=== PATIENT | male | born 1980 | race Hispanic/Latino ===

== ENCOUNTER 2018-09-23 07:45 | Emergency (ER) | payer BC ==
[2018-09-23 08:02] VITALS: RESP 20; O2SAT 98
[2018-09-23] MEDS ORDERED: Dexamethasone 4 mg/1 ml IM STA (08:23)
--- NOTE | 2018-09-23 09:23 | C.PDOC ---
History Of Present Illness 38 y/o male, w/PMhx of chronic right elbow pain, presents to the ER complaining of right elbow pain and swelling which has been present for the past 1 week. 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 Patient denies having recent trauma, rash, erythema, fever, and chills. Time Seen by Provider: 09/23/18 07:58 Chief Complaint (Nursing): Upper Extremity Problem/Injury History Per: Patient History/Exam Limitations: no limitations Onset/Duration Of Symptoms: Days Current Symptoms Are (Timing): Still Present Severity: Moderate Past Medical History Reviewed: Historical Data, Nursing Documentation, Vital Signs Vital Signs: Last Vital Signs Temp 97.5 F L 09/23/18 08:00 Pulse 98 H 09/23/18 08:00 Resp 20 09/23/18 08:00 BP 138/88 09/23/18 08:00 Pulse Ox 98 09/23/18 08:00 - Medical History PMH: Kidney Stones Surgical History: No Surg Hx Family History: States: No Known Family Hx - Social History Hx Tobacco Use: No Hx Alcohol Use: No Hx Substance Use: No Review Of Systems Except As Marked, All Systems Reviewed And Found Negative. Constitutional: Negative for: Fever, Chills Musculoskeletal: Positive for: Other (right elbow pain) Skin: Negative for: Rash Neurological: Negative for: Weakness, Numbness Physical Exam - Physical Exam Appears: Non-toxic, No Acute Distress Skin: Normal Color, Warm, Dry Head: Atraumatic, Normacephalic Eye(s): bilateral: Normal Inspection Neck: Supple Chest: Symmetrical Cardiovascular: Rhythm Regular Respiratory: Normal Breath Sounds, No Rales, No Rhonchi, No Wheezing Extremity: No Normal ROM (limited ROM in right elbow secondary to pain), Tenderness (mild tenderness to posterior aaspect of right elbow), Swelling (mild swelling to posterior aspect of right elbow) Pulses: Right Radial: Normal Neurological/Psych: Oriented x3, Normal Speech, Normal Motor, Normal Sensation ED Course And Treatment O2 Sat by Pulse Oximetry: 98 (RA) Pulse Ox Interpretation: Normal Medical Decision Making Medical Decision Making: Plan: --Decadron IM --Toradol IM Disposition - Disposition Referrals: Richy Echols MD [Staff Provider] - Tony Pagan MD [Staff Provider] - Disposition: HOME/ ROUTINE Disposition Time: 09:20 Condition: GOOD Additional Instructions: There is swelling in the elbow that could bursitis, tennis elbow or gout. Follow up with the Orthopedist within 1 week if it persists. Prescriptions: Naproxen [Naprosyn] 500 mg PO BID #20 tab Instructions: Lateral Epicondylitis (DC) Forms: [facility] (K[place]z), Work Excuse - Clinical Impression Clinical Impression: Elbow tendonitis - PA / [employer] / Resident Statement MD/DO has reviewed & agrees with the documentation as recorded. - Scribe Statement The provider has reviewed the documentation as recorded by the Tanmay Che Provider Attestation All medical record entries made by the Tanmay were at my direction and personally dictated by me. I have reviewed the chart and agree that the record accurately reflects my personal performance of the history, physical exam, medical decision making, and the department course for this patient. I have also personally directed, reviewed, and agree with the discharge instructions and disposition.
[2018-09-23 09:28] VITALS: BP 136/77; PULSE 90; TEMP 97.9
== END 2018-09-23 09:35 | disposition home or self-care (01) ==
LOC: C.ER 07:45
DX: M77.8 Other enthesopathies, not elsewhere classified (principal)
CPT/HCPCS: 96372; 99284; J1100; J1885